=== PATIENT | female | born 1995 | race Caucasian/White ===

== ENCOUNTER 2017-11-28 19:39 | Emergency (ER) | payer OTHER | END 2017-11-28 20:52 | disposition home or self-care (01) | LOC: M ED 19:39 | DX: S83.92XA Sprain of unspecified site of left knee, initial encounter (principal); W01.0XXA Fall on same level from slipping, tripping and stumbling without subsequent striking against object, initial encounter; Y92.830 Public park as the place of occurrence of the external cause; J45.909 Unspecified asthma, uncomplicated; Z88.8 Allergy status to other drugs, medicaments and biological substances; Z91.011 Allergy to milk products | CPT/HCPCS: 73564 ==

== ENCOUNTER 2017-12-28 19:55 | Emergency (ER) | payer OTHER, SELFPAY ==
[2017-12-28] MEDS: PENICILLIN V POTASSIUM 500 MG TAB PO ×2 (21:13)
== END 2017-12-28 21:18 | disposition home or self-care (01) ==
LOC: M ED 19:55
DX: J02.0 Streptococcal pharyngitis (principal); Z88.8 Allergy status to other drugs, medicaments and biological substances; Z91.011 Allergy to milk products
CPT/HCPCS: 87880